=== PATIENT | female | born 1995 | race Caucasian/White ===

== ENCOUNTER 2017-11-25 22:34 | Emergency (ER) | payer SELFPAY ==
[~2017-11-25] VITALS: Ht 162.6 cm; Wt 69.0 kg
[2017-11-26] MEDS ORDERED: IBUPROFEN 600MG TABLET PO ONE (02:00)
[2017-11-26 02:37] VITALS: BP 103/61
== END 2017-11-26 03:10 | disposition home or self-care (01) ==
LOC: ER 22:34
DX: S16.1XXA Strain of muscle, fascia and tendon at neck level, initial encounter (principal); M79.651 Pain in right thigh; V43.62XA Car passenger injured in collision with other type car in traffic accident, initial encounter; Y93.89 Activity, other specified; Y92.410 Unspecified street and highway as the place of occurrence of the external cause
CPT/HCPCS: 99283

== ENCOUNTER 2019-12-18 11:50 | Emergency (ER) | payer SELFPAY ==
[~2019-12-18] VITALS: Ht 162.6 cm; Wt 54.0 kg
[2019-12-18] MEDS ORDERED: ONDANSETRON HCL 4MG/2ML INJ IV STA (11:59)
[2019-12-18] MEDS ORDERED: MORPHINE SULFATE 4 MG/ML CPJ (NOT FOR IM USE) IV STA (11:59)
[2019-12-18] MEDS ORDERED: SODIUM CHLORIDE 0.9% 1,000 ML IV ONE (11:59)
[2019-12-18] MEDS ORDERED: ETOMIDATE 2MG/ML 10ML VIAL IV ONE (12:45)
[2019-12-18] MEDS ORDERED: PROPOFOL 10MG/ML 100ML 100 ML IV SCH (13:30)
[2019-12-18] MEDS ORDERED: KETOROLAC 30MG/ML VIAL IV ONE (14:00)
[2019-12-18 16:01] LABS: BASOPHILS % 0.4 % (0.0-2.0); HEMATOCRIT. 38.3 % (36.0-48.0); HEMOGLOBIN. 12.6 g/dL (12.0-16.0); LYMPHOCYTES % 30.6 % (20.0-50.0); MEAN CORPUSCULAR HEMOGLOBIN 27.8 pg (28.0-32.0); MEAN CORPUSCULAR VOLUME 84.3 fL (81.0-99.0); MEAN PLATELET VOLUME 8.6 fl (7.4-10.4); MONOCYTES % 5.9 % (2.0-8.0); NEUTROPHILS % 62.1 % (40.0-76.0); PLATELET 250 x1000/uL (130-400); RED BLOOD CELL COUNT 4.54 mill/uL (4.2-5.4); RED CELL DISTRIBUTION WIDTH 16.4 % (11.6-14.6)
[2019-12-18 16:06] LABS: CHLORIDE 106 mEq/L (98-107)
[2019-12-18 16:07] LABS: PROTHROMBIN TIME 10.9 sec (9.6-11.0)
[2019-12-18 16:19] LABS: B-HCG QUANTITATIVE < 1 mIU/mL (<3)
[2019-12-18] MEDS ORDERED: IOHEXOL-300 100 ML BOTTLE ONE (18:57)
[2019-12-18] MEDS ORDERED: MORPHINE SULFATE 4 MG/ML CPJ (NOT FOR IM USE) IV ONE (20:15)
[2019-12-18 20:25] VITALS: BP 109/68
== END 2019-12-18 21:19 | disposition home or self-care (01) ==
LOC: ER 11:50
DX: S52.222A Displaced transverse fracture of shaft of left ulna, initial encounter for closed fracture (principal); S52.502A Unspecified fracture of the lower end of left radius, initial encounter for closed fracture; N93.9 Abnormal uterine and vaginal bleeding, unspecified; V49.88XA Car occupant (driver) (passenger) injured in other specified transport accidents, initial encounter; Y93.89 Activity, other specified; Y92.89 Other specified places as the place of occurrence of the external cause; Y99.8 Other external cause status
CPT/HCPCS: 36415; 73090; 73100; 74177; 76830; 76856; 80053; 81025; 84702; 85025; 85610; 86850; 86900; 86901; 96374; 96375; 96376; 99152; 99285; J1885; J2270; J2405; J2704; J3490; J7030; Q9967

== ENCOUNTER 2023-10-16 20:45 | Emergency (ER) | payer MEDICAID, OTHER ==
[~2023-10-16] VITALS: Ht 157.5 cm; Wt 62.0 kg
[2023-10-16 20:54] VITALS: O2SAT 98
[2023-10-16] MEDS ORDERED: ONDANSETRON 4MG ODT PO STA (23:41)
[2023-10-16] MEDS ORDERED: ACETAMINOPHEN 325MG TABLET PO STA (23:41)
[2023-10-16] MEDS ORDERED: KETOROLAC 60MG/2ML VIAL IM STA (23:41)
[2023-10-16] MEDS ORDERED: MAGNESIUM/ALUMINUM HYDROXIDE/SIMETHICONE 30ML UDC PO STA (23:41)
[2023-10-17 00:17] LABS: GLUCOSE URINE NEGATIVE (NEGATIVE); KETONES URINE 3+ (NEGATIVE)
[2023-10-17 01:55] LABS: CLARITY URINE CLEAR (CLEAR); COLOR URINE YELLOW (YELLOW); LEUKOCYTE ESTERASE URINE NEGATIVE (NEGATIVE); NITRITE URINE NEGATIVE (NEGATIVE); OCCULT BLOOD URINE NEGATIVE (NEGATIVE); PROTEIN URINE TRACE (NEGATIVE); SPECIFIC GRAVITY URINE 1.034 (1.005-1.030); UROBILINOGEN URINE 1 E.U./dL (0.2-1.0)
[2023-10-17 01:58] LABS: WBC URINE NONE SEEN /hpf (0-2)
[2023-10-17 01:59] LABS: BACTERIA URINE TRACE; MUCUS URINE 1+ /lpf (< = 2+); SQUAMOUS EPITHELIAL CELL URINE 1+ /lpf (RARE/1+)
[2023-10-17] MEDS ORDERED: HYDROCODONE/ACETAMINOPHEN 5/325MG TABLET PO STA (03:03)
[2023-10-17] MEDS ORDERED: METOCLOPRAMIDE HCL 10MG TABLET PO ONE (03:15)
[2023-10-17 04:58] LABS: BASOPHILS % 0.5 % (0.0-2.0); EOSINOPHILS % 1.4 % (0.0-5.0); HEMATOCRIT. 38.8 % (36.0-48.0); HEMOGLOBIN. 12.4 g/dL (12.0-16.0); LYMPHOCYTES % 37.3 % (20.0-50.0); MEAN CORPUSCULAR HEMOGLOBIN 27.3 pg (28.0-32.0); MEAN CORPUSCULAR HGB CONC 31.8 g/dL (31.0-37.0); MEAN CORPUSCULAR VOLUME 85.6 fL (81.0-99.0); MEAN PLATELET VOLUME 8.4 fl (7.4-10.4); MONOCYTES % 13.9 % (2.0-8.0); NEUTROPHILS % 46.9 % (40.0-76.0); PLATELET 233 x1000/uL (130-400); RED BLOOD CELL COUNT 4.53 mill/uL (4.2-5.4); RED CELL DISTRIBUTION WIDTH 13.9 % (11.6-14.6); WHITE BLOOD COUNT 4.8 x1000/uL (4.5-11.0)
[2023-10-17 05:16] LABS: ALANINE AMINOTRANSFERASE 11 IU/L (10-49); ALBUMIN 4.5 g/dL (3.2-4.8); ASPARTATE AMINOTRANSFERASE 19 IU/L (<34); BILIRUBIN TOTAL 0.3 mg/dL (0.1-1.0); CALCIUM 9.3 mg/dL (8.7-10.4); CARBON DIOXIDE 23 mEq/L (21-32); CHLORIDE 105 mEq/L (98-107); CREATININE 0.7 mg/dL (0.6-1.0); GLUCOSE 90 mg/dL (70-105); POTASSIUM 3.8 mEq/L (3.5-5.1); PROTEIN TOTAL 7.7 g/dL (6.0-8.3); SODIUM 137 mEq/L (136-145); UREA NITROGEN BLOOD 13 mg/dL (9-23)
[2023-10-17 05:24] LABS: HCG SCREEN NEGATIVE
[2023-10-17] MEDS ORDERED: IBUP-2028 MT (06:02)
[2023-10-17] MEDS ORDERED: ONDA4TAB50 MT (06:02)
[2023-10-17 08:46] VITALS: BP 108/63; PULSE 69; RESP 19; TEMP 97.8
== END 2023-10-17 08:48 | disposition home or self-care (01) ==
LOC: ER 20:45
DX: R51.9 Headache, unspecified (principal); R11.2 Nausea with vomiting, unspecified
CPT/HCPCS: 99285; 71045; 81003; 81025; 36415; 70450; 80053; 84703; 83690; 85025; 96372; Q0162; J1885; J8597